=== PATIENT | male | born 1990 | race Caucasian/White ===

== ENCOUNTER 2016-04-19 18:27 | Emergency (ER) | payer BC ==
[~2016-04-19] VITALS: Ht 175.3 cm; Wt 80.0 kg
[2016-04-19 18:36] VITALS: BP 121/56; PULSE 78; RESP 16; TEMP 98.1; O2SAT 99
--- NOTE | 2016-04-19 18:42 | PD ---
HPI Chief Complaint: Alcohol/Drug Intoxication Time Seen by Provider: 18:35 Travel History International Travel<30 days: No Contact w/Intl Traveler<30days: No Traveled to known affect area: No History of Present Illness HPI 25-year-old male brought in by EMS with acute intoxication. Patient has an apparent contusion to the left forehead and upper cheek with small abrasion. He also has an abrasion to the left inner great toe with mild amount of bleeding. It is able to speak and communicate appropriately, but is obviously intoxicated. He states he been drinking vodka. He is here on spring from [place]. He is not complaining of any pain. He denies dental injury. He has no known drug allergies. [facility] Past Medical History Medical History: Unable to Obtain Social History Alcohol Use: Yes Tobacco Use: No Substance Use: No Allergies-Medications (Allergen,Severity, Reaction): Coded Allergies: No Known Allergies (Unverified , 04/19/16) Reported Meds & Prescriptions Reported Meds & Active Scripts Active No Active Prescriptions or Reported Medications Review of Systems ROS Limitations: Intoxication Except as stated in HPI: all other systems reviewed are Neg Physical Exam Exam Limitations: Intoxication Narrative GENERAL: Patient is intoxicated but appears in no acute distress. He does answer questions appropriately. He is alert to time and place and person. SKIN: Warm and dry. Patient has abrasion to the left lateral distal great toe, an abrasion to the left cheek and contusion to the left periorbital region consistent with hitting his head with a fall. No active bleeding. HEAD: Contusion noted to the left anterior forehead and periorbital region, but patient complains of no pain with palpation. No bony tenderness or deformity. Normocephalic. EYES: Pupils equal and round. No scleral icterus. No injection or drainage. Ocular motions are full bilaterally without discomfort or signs of entrapment. ENT: No nasal bleeding or discharge. Mucous membranes pink and moist. No dental injury appreciated. Pharynx is clear. Airway is patent. Question of small tongue laceration to the left lateral tongue. NECK: Trachea midline. No bony tenderness or step-off. Neck is supple without tenderness. CARDIOVASCULAR: Regular rate and rhythm. No murmurs gallops or rubs. RESPIRATORY: No accessory muscle use. Clear to auscultation. Breath sounds equal bilaterally. GASTROINTESTINAL: Abdomen soft, non-tender, nondistended. Hepatic and splenic margins not palpable. MUSCULOSKELETAL: Extremities without clubbing, cyanosis, or edema. No obvious deformities. NEUROLOGICAL: Awake and alert. No obvious cranial nerve deficits. Motor grossly within normal limits. Five out of 5 muscle strength in the arms and legs. Somewhat slurred speech. PSYCHIATRIC: Patient is INTOXICATED but appropriate. Data Data Last Documented VS Vital Signs Date Time Temp Pulse Resp B/P Pulse Ox O2 Delivery O2 Flow Rate FiO2 04/19/16 20:46 16 04/19/16 20:37 82 129/60 98 04/19/16 18:36 98.1 Room Air Orders Sodium Chlor 0.9% 1000 Ml Inj (Ns 1000 M (04/19/16 18:45) Ct Brain W/O Iv Contrast(Rout) (04/19/16 18:42) Ct Facial Bones W/O Iv Cont (04/19/16 18:42) Wound Care (04/19/16 18:42) MDM Medical Decision Making Medical Screen Exam Complete: Yes Emergency Medical Condition: Yes Differential Diagnosis Acute alcohol intoxication. Facial contusion. Left toe abrasion. Narrative Course Patient is felt to be medically stable at time of exam. CT of the head and facial bones is ordered. Patient is given 1000 mL's normal saline bolus. CT of the head and facial bones was unremarkable for acute process per radiologist. Patient is awaiting med bed, and to sleep it off. Diagnosis Primary Impression: Acute alcohol intoxication Qualified Code: F10.120 - Acute alcohol intoxication, uncomplicated Additional Impressions: Contusion of face Qualified Code: S00.83XA - Contusion of face, initial encounter Facial abrasion Qualified Code: S00.81XA - Facial abrasion, initial encounter Abrasion, left great toe, initial encounter Referrals: Primary Care Physician Patient Instructions: General Instructions Additional Instructions: Do not drink further alcohol. Stay with friends who are not drinking alcohol. Rest and push fluids. Return to emergency department as symptoms warrant. Wound care as discussed. Med/Other Pt SpecificInfo: Wound Care Scripts No Active Prescriptions or Reported Meds Disposition: 01 DISCHARGE HOME Condition: Stable Jacob Clements Apr 19, 2016 18:42
[2016-04-19] MEDS ORDERED: SODIUM CHLOR 0.9% 1000 ML INJ 1,000 ML IV ONE (18:45)
--- NOTE | 2016-04-19 19:29 | RADRPT ---
EXAM DATE/TIME: 04/19/2016 19:06 [facility] COMPARISON: No previous studies available for comparison. INDICATIONS : Trauma. Fall. RADIATION DOSE: 45.79 CTDIvol (mGy) MEDICAL HISTORY : None SURGICAL HISTORY : None. ENCOUNTER: Initial ACUITY: 1 day PAIN SCALE: Non-responsive LOCATION: cranial TECHNIQUE: Multiple contiguous axial images were obtained of the head. Using automated exposure control and adj ustment of the mA and/or kV according to patient size, radiation dose was kept as low as reasonably a chievable to obtain optimal diagnostic quality images. FINDINGS: CEREBRUM: The ventricles are normal for age. No evidence of midline shift, mass lesion, hemorrhage or acute in farction. No extra-axial fluid collections are seen. POSTERIOR FOSSA: The cerebellum and brainstem are intact. The 4th ventricle is midline. The cerebellopontine angle i s unremarkable. EXTRACRANIAL: A. by 15 mm partly calcified mass seen in the left parietal scalp. The underlying skull is normal. SKULL: The calvaria is intact. No evidence of skull fracture. CONCLUSION: No acute intracranial abnormality. Nonspecific left parietal scalp mass, probably a calcified epiderm al inclusion cyst but please correlate clinically. Lorenzo Ibarra MD on April 19, 2016 at 19:26 Board Certified Radiologist. This report was verified electronically.
--- NOTE | 2016-04-19 19:36 | RADRPT ---
EXAM DATE/TIME: 04/19/2016 19:14 [facility] COMPARISON: No previous studies available for comparison. INDICATIONS : Trauma. Fall. RADIATION DOSE: 36.44 CTDIvol (mGy) MEDICAL HISTORY : None SURGICAL HISTORY : None. ENCOUNTER: Initial ACUITY: 1 day PAIN SCORE: Non-responsive LOCATION: facial TECHNIQUE: Volumetric scanning of the facial bones was performed. Using automated exposure control and adjustme nt of the mA and/or kV according to patient size, radiation dose was kept as low as reasonably achiev able to obtain optimal diagnostic quality images. FINDINGS: ORBITS: The orbital and infraorbital osseous structures are intact. The retroconal structures have a normal configuration. No radiopaque foreign bodies are seen. NASAL BONE: The nasal bone and maxillary spine are intact ZYGOMATIC ARCHES: Symmetric without evidence of fracture. SINUSES: The maxillary, ethmoid and frontal sinuses are intact. No air-fluid levels seen. NASAL CAVITY: The nasal septum is intact and midline. The lacrimal ducts are intact. SOFT TISSUES: Left supraorbital scalp contusion noted. INTRACRANIAL: No intracranial air seen. CRIBIFORM PLATE: Grossly intact. CONCLUSION: Intact face. Lorenzo Ibarra MD on April 19, 2016 at 19:34 Board Certified Radiologist. This report was verified electronically.
[2016-04-19 20:37] VITALS: BP 129/60; PULSE 82; RESP 16; O2SAT 98
[2016-04-20 02:07] VITALS: BP 117/61; PULSE 96; RESP 20; O2SAT 97
== END 2016-04-20 02:44 | disposition home or self-care (01) ==
LOC: NEPA 18:27
DX: F10.120 Alcohol abuse with intoxication, uncomplicated (principal); S00.83XA Contusion of other part of head, initial encounter; S00.81XA Abrasion of other part of head, initial encounter; S90.412A Abrasion, left great toe, initial encounter; X58.XXXA Exposure to other specified factors, initial encounter; Y93.9 Activity, unspecified; Y92.9 Unspecified place or not applicable; Y99.9 Unspecified external cause status; Y90.9 Presence of alcohol in blood, level not specified
CPT/HCPCS: 70450; 70486; 96360; 99284; J7030